=== PATIENT | female | born 1960 | race African-American/Black ===

== ENCOUNTER 2019-10-10 08:03 | Outpatient (CLI) | payer OTHER, SELFPAY ==
--- NOTE | ~2019-10-10 | XR_ITS ---
EXAMINATION: XR shoulder LT min 2V DATE: 10/10/2019 08:59 INDICATION: Left shoulder pain. TECHNIQUE: 4 views of left shoulder were obtained. COMPARISON: Left shoulder radiographs 07/16/2010 FINDINGS: Bone alignment is normal. No fracture. Glenohumeral joint is normal. There is mild acromioc lavicular joint osteoarthritis. IMPRESSION: 1. Mild left acromioclavicular joint osteoarthritis. Reviewed, dictated and finalized at location A. HATE TESTER
--- NOTE | ~2019-10-10 | XR_ITS ---
EXAMINATION: XR cervical spine 4-5V EXAM DATE: 10/10/2019 08:59 INDICATION: Left shoulder pain, neck pain. TECHNIQUE: Cervical spine frontal, lateral, lateral swimmers, and open-mouth odontoid projections. C omparison is made to prior examination from 08/18/2006. FINDINGS: There is no evidence of acute cervical fracture. The odontoid process is intact. Pre-dens space is normal. Prevertebral soft tissue is normal. There are no soft tissue abnormalities identi fied. The vertebral bodies are aligned. There is moderate disc disease C5-6 and C6-7, developed c ompared to 2006. Overall mild to moderate cervical arthropathy. IMPRESSION: 1. Mild to moderate cervical spondylosis. Reviewed, dictated and finalized at location B. ETT ROOM WORKER
== END 2019-10-10 08:04 | disposition home or self-care (01) ==
DX: M79.10 Myalgia, unspecified site (principal); M47.812 Spondylosis without myelopathy or radiculopathy, cervical region; M19.012 Primary osteoarthritis, left shoulder
CPT/HCPCS: 72050; 73030

== ENCOUNTER 2019-10-12 15:32 | Emergency (ER) | payer OTHER, SELFPAY ==
[2019-10-12 15:46] VITALS: BP 174/79; PULSE 69; RESP 18; TEMP 38.9; O2SAT 100
--- NOTE | 2019-10-12 16:40 | ED.GENADULT ---
HPI - General Adult General Chief complaint: Upper Respiratory Infection Stated complaint: Headache Time Seen by Provider: 10/12/19 16:40 Source: patient Mode of arrival: ambulatory Limitations: no limitations History of Present Illness HPI narrative: 59-year-old female patient presents to the [facility] with complaints of headache, body aches, chills, fevers, runny nose, stuffy nose and just overall feeling very weak and lethargy. Patient states she did not get a flu shot this year. Patient states her symptoms came on very abruptly today. Patient states that she did see her primary doctor yesterday for some neck issues which she was prescribed some medication for her. Patient states she has been taking the prescribed medication by her doctor which does include ibuprofen. Related Data Home Medications Medication Instructions Recorded Confirmed cyclobenzaprine 5 mg BID 10/12/19 10/12/19 ibuprofen 800 mg BID PRN 10/12/19 10/12/19 pregabalin 75 mg BID 10/12/19 10/12/19 Allergies Allergy/AdvReac Type Severity Reaction Status Date / Time No Known Allergies Allergy Verified 10/12/19 15:33 Review of Systems Review of Systems: Narrative: CONSTITUTIONAL: Positive fever, body aches, chills, and sweats. EYES: Denies visual changes, redness, or discharge. ENT: Positive rhinorrhea, congestion, denies sore throat, or otalgia. CARDIOVASCULAR: Denies chest pain, palpitations, or edema. RESPIRATORY: Positive cough denies dyspnea. GASTROINTESTINAL: Denies abdominal pain, nausea, vomiting, or diarrhea. GENITOURINARY: Denies dysuria or hematuria. SKIN: Denies rash or itching. MUSCULOSKELETAL: Denies back pain, joint pain, or myalgia. NEUROLOGIC: Denies headache, numbness, or weakness. PSYCHIATRIC: Denies anxiety or depression. PMFSH Social History Social History Gender identity (if verbalized by the patient): Female Comments At the time of my signature I agree with nursing past medical history, surgical, social, and family history. There is no relevant family history pertinent to the presenting complaint. Exam Narrative: Exam Narrative: GENERAL: ill-appearing, well-nourished, and in no acute distress. Patient is covered in blanket, wearing heavy jacket and a knit hat on arrival into the exam room HEAD: Normocephalic, atraumatic. EYES: PERRLA and EOMI. ENT: Nares with erythema and edema noted bilaterally, no rhinorrhea or epistaxis. Mucous membranes moist. Posterior pharynx with no erythema, tonsillar margin, exudates or lesions present. Bilateral TMs are clear no erythema or foreign bodies in the canal. NECK: Supple. No lymphadenopathy CHEST: Clear to auscultation. No respiratory distress. HEART: Regular rate and rhythm. No murmur heard. Normal peripheral pulses. ABDOMEN: Soft, nontender, nondistended, normal active bowel sounds. EXTREMITIES: Normal range of motion. No edema. SKIN: Warm, dry, no rash. NEURO: No focal deficits. Alert and oriented x3. Course Vital Signs Vital signs: Vital Signs Temperature 38.9 C H 10/12/19 15:46 Pulse Rate 69 10/12/19 15:46 Respiratory Rate 18 10/12/19 15:46 Blood Pressure 174/79 H 10/12/19 15:46 Pulse Oximetry 100 10/12/19 15:46 Temperature 38.9 C H 10/12/19 15:46 Pulse Rate 69 10/12/19 15:46 Respiratory Rate 18 10/12/19 15:46 Blood Pressure 174/79 H 10/12/19 15:46 Pulse Oximetry 100 10/12/19 15:46 Vital signs reviewed. The patient has been informed that they may have pre-hypertension or Hypertension based on a BP reading in the department. I recommend that the patient call the primary care provider listed on their discharge instructions or a physician of their choice this week to arrange follow up for further evaluation of possible pre-hypertension or Hypertension Medical Decision Making Differential Diagnosis Differential Diagnosis: Differential diagnosis: Allergic rhinitis, chronic sinusitis
== END 2019-10-12 16:51 | disposition home or self-care (01) ==
PROVIDERS: Emergency Provider Nurse Practitioner Family; PCP Family Medicine
DX: J06.9 Acute upper respiratory infection, unspecified (principal); R05 Cough; R50.9 Fever, unspecified; Z85.3 Personal history of malignant neoplasm of breast
CPT/HCPCS: 87804; 99213; G0463

== ENCOUNTER 2020-07-18 15:47 | Outpatient (CLI) | payer OTHER, SELFPAY ==
[2020-07-18 16:08] LABS: Hematocrit 34.8 % (37.0-47.0); Hemoglobin 11.2 g/dL (12.0-15.0); Mean Corpuscular HGB Conc 32.2 g/dl (32-36); Mean Corpuscular Hemoglobin 27.3 pg (26-34); Mean Corpuscular Volume 84.9 fl (80-100); Mean Platelet Volume 9.8 fl (7.4-10.4); Platelet Count Result 297 k/mm3 (150-375); Red Cell Distribution Width 14.6 % (11.5-14.5); White Blood Count 5.2 K/mm3 (4.5-10.0)
[2020-07-18 16:25] LABS: Alanine Aminotransferase 10 U/L (4-35); Albumin Level 3.9 g/dL (3.5-5.1); Alkaline Phosphatase 69 U/L (38-126); Anion Gap 7 mmol/L (8-16); Aspartate Amino Transferase 22 U/L (14-36); Bilirubin,Total 0.4 mg/dL (0.2-1.3); Blood Urea Nitrogen 11 mg/dL (7-17); Calcium 8.9 mg/dL (8.4-10.2); Carbon Dioxide 28 mmol/L (22-30); Chloride 106 mmol/L (98-107); Estimated Glomerular Filt Rate > 60; Glucose 119 mg/dL (65-105); Potassium 3.6 mmol/L (3.4-5.0); Sodium 141 mmol/L (137-145)
[2020-07-18 16:55] LABS: Thyroid Stimulating Hormone 0.959 uIU/mL (0.465-4.680)
[2020-07-18 16:59] LABS: Hemoglobin A1C 5.5 % (<5.7)
== END 2020-07-18 15:48 | disposition home or self-care (01) ==
LOC: ANHLAB 15:49
PROVIDERS: PCP Family Medicine; Visit Provider Psychiatry & Neurology Neurology
DX: G51.0 Bell's palsy (principal)
CPT/HCPCS: 36415; 80053; 83036; 84439; 84443; 85027

== ENCOUNTER 2020-08-01 08:06 | Outpatient (CLI) | payer OTHER, SELFPAY ==
--- NOTE | ~2020-08-01 | MR_ITS ---
EXAMINATION: MR brain/brain stem wo con DATE: 08/01/2020 10:11 INDICATION: Garcia's palsy. TECHNIQUE: Magnetic resonance imaging (MRI) of the brain and brainstem was performed without intraven ous contrast. Sequences included sagittal and axial T1-weighted FSE, axial diffusion-weighted FS EPI, axial T2*-weighted GRE, axial T2-weighted FLAIR Propeller, and axial T2-weighted Propeller. Apparent diffusion coefficient (ADC) maps were created. COMPARISON: None. FINDINGS: There are scattered areas of nonspecific increased T2-weighted signal intensity in the cere bral white matter, which is within normal limits for the patient's age. There is no intracranial hemo rrhage, acute infarction, or abnormal intracranial mass lesion. The ventricles are normal in size. Th e orbits are normal. The paranasal sinuses are clear. There is a trace right mastoid effusion. IMPRESSION: 1. Normal aging brain. Reviewed, dictated and finalized at location A. KBOOK FORWARDER IMPRESSION: 1. Normal aging brain.
--- NOTE | ~2020-08-01 | MR_ITS ---
EXAMINATION: MR cervical spine wo con DATE: 08/01/2020 10:30 INDICATION: Left neck pain. TECHNIQUE: Magnetic resonance imaging (MRI) of the cervical spine was performed without intravenous c ontrast. Sequences included sagittal T2-weighted FSE, sagittal STIR FSE, sagittal T1-weighted FSE, ax ial MERGE, and axial T2-weighted FSE. COMPARISON: Cervical spine radiographs 10/10/2019, thoracic spine MRI 09/05/2018 FINDINGS: There is kyphosis of cervical spine. There is 2 mm retrolisthesis of C5 on C6. Vertebral maria isabel dy heights are normal. There is mildly decreased disc height at C4-C5, moderately decreased disc heig ht at C5-C6, and mildly decreased disc height at C6-C7. The spinal cord signal intensity is normal. T he following disc levels are specifically discussed: C2-C3: The disc does not extend beyond the endplate margin. There is no uncovertebral joint osteoarth ritis. There is mild bilateral facet joint osteoarthritis. There is no neural foraminal stenosis. The re is no central canal stenosis. C3-C4: There is a central protrusion. There is mild bilateral uncovertebral joint osteoarthritis. The re is moderate bilateral facet joint osteoarthritis. There is no neural foraminal stenosis. There is mild central canal stenosis. C4-C5: The disc does not extend beyond the endplate margin. There is no uncovertebral joint osteoarth ritis. There is mild left facet joint osteoarthritis. There is no neural foraminal stenosis. There is no central canal stenosis. C5-C6: The disc is bulging. There is severe right and moderate left uncovertebral joint osteoarthriti s. There is no facet joint osteoarthritis. There is mild bilateral neural foraminal stenosis. There i s mild central canal stenosis with ventral indentation of the spinal cord. C6-C7: The disc is bulging. There is moderate bilateral uncovertebral joint osteoarthritis. There is no facet joint osteoarthritis. There is mild bilateral neural foraminal stenosis. There is mild centr al canal stenosis. C7-T1: The disc does not extend beyond the endplate margin. There is no uncovertebral joint osteoarth ritis. There is mild right and moderate left facet joint osteoarthritis. There is mild left neural fo raminal stenosis. There is no central canal stenosis. IMPRESSION: 1. Moderate cervical spondylosis. Reviewed, dictated and finalized at location A. AL HYGIENIST
== END 2020-08-01 08:07 ==
PROVIDERS: PCP Family Medicine; Visit Provider Psychiatry & Neurology Neurology
DX: G51.0 Bell's palsy (principal); M54.2 Cervicalgia; M47.892 Other spondylosis, cervical region
CPT/HCPCS: 70551; 72141

== ENCOUNTER 2021-03-22 20:14 | Emergency (ER) | payer OTHER, SELFPAY ==
[2021-03-22 20:18] VITALS: BP 143/60; PULSE 70; RESP 18; TEMP 36.3; O2SAT 99
--- NOTE | 2021-03-22 23:10 | ED.WOUNDLAC ---
HPI - Wound/Laceration General Chief Complaint: Wound/Laceration Stated Complaint: laceration to right arm Time Seen by Provider: 03/22/21 22:41 Source: patient Mode of arrival: ambulatory Limitations: no limitations History of Present Illness HPI narrative: 61-year-old female Patient states that she was standing with her feet in the bathroom sink to wash them off and she slipped and fell in her right arm landed on and broke a glass She has several fairly superficial lacerations to the inner part of the upper right arm No other injuries Related Data Home Medications Medication Instructions Recorded Confirmed cyclobenzaprine 5 mg BID 10/12/19 10/12/19 ibuprofen 800 mg BID PRN 10/12/19 10/12/19 pregabalin 75 mg BID 10/12/19 10/12/19 Allergies Allergy/AdvReac Type Severity Reaction Status Date / Time No Known Allergies Allergy Verified 10/12/19 15:33 [facility] Social History Social History Gender identity (if verbalized by the patient): Female Course Vital Signs Vital signs: Vital Signs Temperature 36.3 C L 03/22/21 20:18 Pulse Rate 70 03/22/21 20:18 Respiratory Rate 18 03/22/21 20:18 Blood Pressure 143/60 H 03/22/21 20:18 Pulse Oximetry 99 03/22/21 20:18 Temperature 36.3 C L 03/22/21 20:18 Pulse Rate 70 03/22/21 20:18 Respiratory Rate 18 03/22/21 20:18 Blood Pressure 143/60 H 03/22/21 20:18 Pulse Oximetry 99 03/22/21 20:18 Procedures Laceration Laceration 1: Date: 03/22/21 Time: 23:00 Site: upper extremity Side (If applicable): right Size (cm): 3 Description: linear Depth: simple, single layer Local Anesthetic: lidocaine 1% and with epi Amount of anesthesia used (mL): 3 Pre-repair: wound explored (No foreign bodies) and irrigated ====== Skin Level ====== Skin layer closed with: nylon Size (cm): 4-0 Number of sutures: 4 Technique: simple, interrupted ====== Subcutaneous Layer ====== ====== Muscle Layer ====== ====== Tendon Layer ====== Laceration 2: Date: 03/22/21 Time: 23:00 Site: upper extremity Side (If applicable): right Size (cm): 2 Description: stellate and flap Depth: simple, single layer Local Anesthetic: lidocaine 1% and with epi Amount of anesthesia used (mL): 2 Pre-repair: wound explored (No foreign body) and irrigated ====== Skin Level ====== Skin layer closed with: nylon Size (cm): 4-0 Number of sutures: 4 Technique: simple, interrupted and other (3 corner suture) ====== Subcutaneous Layer ====== ====== Muscle Layer ====== ====== Tendon Layer ====== Discharge Plan Discharge Clinical Impression: Laceration of arm, right, multiple sites Patient Disposition: Home, Self-Care Condition: Improved Instructions: Care For Your Stitches (ED), Laceration (ED) Additional Instructions: Sutures can be removed by your primary care doctor in about 10 days Prescriptions: No Action ibuprofen 800 mg tablet 800 mg BID PRN (Reason: Pain) RF: 0 cyclobenzaprine 5 mg tablet 5 mg BID RF: 0 pregabalin 75 mg capsule 75 mg BID RF: 0 oseltamivir [Tamiflu] 75 mg capsule 75 mg PO Q12H 5 Days Qty: 10 RF: 0 Follow-up/Referrals: Neetu,Jerzy Driver MD [Primary Care Provider] - (A week from Tuesday suture removal)
[2021-03-23] MEDS: TETANUS,DIPHTHERIA,AC PERTUSSIS ADULT (0.5 ML) BOOSTRIX IM (00:07)
[2021-03-23 00:23] VITALS: BP 132/90; PULSE 68; RESP 19; O2SAT 100
== END 2021-03-23 00:24 | disposition home or self-care (01) ==
PROVIDERS: Emergency Provider Emergency Medicine; PCP Family Medicine
DX: S41.111A Laceration without foreign body of right upper arm, initial encounter (principal); W01.0XXA Fall on same level from slipping, tripping and stumbling without subsequent striking against object, initial encounter; Z23 Encounter for immunization
CPT/HCPCS: 12002; 90471; 90715; 99282

== ENCOUNTER 2021-04-01 08:39 | Emergency (ER) | payer OTHER, SELFPAY ==
[2021-04-01 08:50] VITALS: BP 143/103; PULSE 65; RESP 16; TEMP 36.6; O2SAT 98
--- NOTE | 2021-04-01 08:52 | ED.UPPEXIN ---
HPI - Extremity Injury (Upper) General Chief Complaint: Skin/Abscess/Foreign Body Stated Complaint: stitches removal Source: patient and RN notes reviewed Limitations: no limitations History of Present Illness HPI narrative: The patient, on routine meds, presents for suture removal. Patient states about 10 days ago she lacerated her right medial bicep when she slipped and fell, landing up on glass. It was sutured in the ER; she requests removal of the 8 stitches, by physician. She has no complaints; except she is notices intermittent rash on her neck at the hairline. Vitals are remarkable for elevated blood pressure; she has a prior history of hypertension-she didn't take her meds this morning. Related Data Home Medications Medication Instructions Recorded Confirmed amlodipine 5 mg PO DAILY 04/01/21 04/01/21 gabapentin 600 mg PO DAILY 04/01/21 04/01/21 Allergies Allergy/AdvReac Type Severity Reaction Status Date / Time No Known Allergies Allergy Verified 04/01/21 08:54 Review of Systems Review of Systems: General/Constitutional: No weight loss,fever Eyes: N0: Redness,discharge Ears/Nose/Throat: No: Epistaxis,ear discharge Respiratory: Denies: Hemoptysis Gastrointestinal: No Vomiting, Bleeding-rectal Skin: No Lumps, REPORTS eruption Neurologic: No Focal Weakness,Sz Hematologic: Denies: Petechiae/Purpura Psychiatric: No: Suicida ideationl All Other Systems: Reviewed and Negative PMFSH Social History Social History Gender identity (if verbalized by the patient): Female Comments At time of signature, agree with nursing past medical, surgical, social and family history. There is no relevant family history pertinent to the presenting complaint Exam Narrative: General Appearance: Well nourished/overweight , Normocephalic, Conjunctiva clear Musculoskeletal: Moves all extremities, Non tender; well-healing puncture/lacerations of right arm Ear: External ear normal Nose: Normal nose, Nare clear Mouth/Throat: Normal appearing Neck Exam: Supple Respiratory: Airway patent, No respiratory distress Skin: Warm, Dry; micropapular eruption on the neck hairline Neurological: A&O x3 Psychiatric: Normal mood, Normal affect Course Vital Signs Vital signs: Vital Signs Temperature 97.9 F 04/01/21 08:50 Pulse Rate 65 04/01/21 08:50 Respiratory Rate 16 04/01/21 08:50 Blood Pressure 143/103 H 04/01/21 08:50 Pulse Oximetry 98 04/01/21 08:50 Temperature 97.9 F 04/01/21 08:50 Pulse Rate 65 04/01/21 08:50 Respiratory Rate 16 04/01/21 08:50 Blood Pressure 143/103 H 04/01/21 08:50 Pulse Oximetry 98 04/01/21 08:50 Discharge Plan Discharge Clinical Impression: Visit for suture removal, Pruritic condition Patient Disposition: Home, Self-Care Condition: Stable Instructions: Dermatitis (ED) Prescriptions: New clotrimazole [Antifungal (clotrimazole)] 1 % cream 1 applic topical BID Qty: 15 RF: 0 No Action amlodipine 5 mg tablet 5 mg PO DAILY RF: 0 gabapentin 600 mg tablet 600 mg PO DAILY RF: 0 Follow-up/Referrals: Neetu,Jerzy Driver MD [Primary Care Provider] -
--- NOTE | 2021-04-01 09:28 | PC.NURSE ---
0900 Dr. Ram removed sutures.
== END 2021-04-01 09:23 | disposition home or self-care (01) ==
PROVIDERS: Emergency Provider Emergency Medicine; PCP Family Medicine
DX: S41.111D Laceration without foreign body of right upper arm, subsequent encounter (principal); W25.XXXD Contact with sharp glass, subsequent encounter; L29.9 Pruritus, unspecified; I10 Essential (primary) hypertension; Z85.3 Personal history of malignant neoplasm of breast
CPT/HCPCS: 99213; G0463

== ENCOUNTER 2021-09-11 17:20 | Emergency (ER) | payer OTHER, SELFPAY ==
[2021-09-11 17:30] VITALS: BP 154/80; PULSE 78; RESP 16; TEMP 37.1; O2SAT 99
[2021-09-11 17:32] VITALS: BP 154/80; PULSE 78; RESP 16; TEMP 37.1; O2SAT 99
--- NOTE | 2021-09-11 17:36 | ED.SKABFB ---
HPI - Skin/Abscess/Foreign Bdy General Chief complaint: Skin/Abscess/Foreign Body Stated complaint: Infection in finger Time Seen by Provider: 09/11/21 17:36 Source: patient Mode of arrival: ambulatory Limitations: no limitations History of Present Illness HPI narrative: Tray Rivera is a 61 yo female with a PMH of HTN who comes to [facility] with an old about a week old but has not really healed well is not draining it does not look inflamed does not look really infected but patient is concerned that is getting infected and has a mild amount of tenderness with movement Related Data Home Medications Medication Instructions Recorded Confirmed amlodipine 5 mg PO DAILY 04/01/21 09/11/21 Allergies Allergy/AdvReac Type Severity Reaction Status Date / Time No Known Allergies Allergy Verified 09/11/21 17:30 Review of Systems Review of Systems: CONSTITUTIONAL: Denies fever, chills, sweats. EYES: Denies visual changes, redness, discharge. ENT: Denies rhinorrhea, congestion, sore throat, otalgia. CARDIOVASCULAR: Denies chest pain, palpitations, edema. RESPIRATORY: Denies dyspnea, wheezing, cough GASTROINTESTINAL: Denies abdominal pain, nausea, vomiting, diarrhea. GENITOURINARY: Denies dysuria, hematuria, abnormal discharge SKIN: Denies rash or itching. Has cut on the distal portion of the right fourth finger there is a week old that is not well approximated NEUROLOGIC: Denies numbness, or focal weakness. PSYCHIATRIC: Denies anxiety or depression. PMFSH Past Medical History Medical History No acute medical problems Social History Social History (Updated 09/11/21 @ 17:46 by Justa Katz CNP) Smoking status: Never smoker Alcohol intake: current Gender identity (if verbalized by the patient): Female Comments At time of signature, I agree with nursing past medical, surgical, social and family history. There is no relevant family history pertinent to the presenting complaint. Exam Narrative: GENERAL: This is a well-nourished, well-developed patient, in mild distress. HEAD: normocephalic, atraumatic. EYES: Sclera clear/white. Vision is grossly intact. EARS: External ears normal, Hearing grossly intact. NOSE: External nose normal without nasal discharge, nares without redness, no rhinorrhea. THROAT: Mucous membranes moist, NECK: Neck supple, non-tender CARDIOVASCULAR: Regular rate and rhythm without murmurs, gallops, or rubs. RESPIRATORY: Clear to auscultation. Breath sounds equal bilaterally. No wheezes, rales, or rhonchi. GASTROINTESTINAL: Abdomen soft, non-tender, SKIN: warm, intact with well approximated healing incision on the dorsum side of the fourth finger distal digit NEURO: awake, alert, and oriented to person, place and time. There were no obvious focal neurologic abnormalities. Steady gait EXTREMITIES: Normal range of motion. BACK: Nontender without deformity Course Course Emergency Course: Patient comes with incision that is not well healed from a week ago Told patient to keep with dressed with a Band-Aid and started on short course of Keflex Level of Care: Express Care Visit Vital Signs Vital signs: Vital Signs Temperature 98.7 F 09/11/21 17:30 Pulse Rate 78 09/11/21 17:30 Respiratory Rate 16 09/11/21 17:30 Blood Pressure 154/80 H 09/11/21 17:30 Pulse Oximetry 99 09/11/21 17:30 Temperature 98.7 F 09/11/21 17:32 Pulse Rate 78 09/11/21 17:32 Respiratory Rate 16 09/11/21 17:32 Blood Pressure 154/80 H 09/11/21 17:32 Pulse Oximetry 99 09/11/21 17:32 MDM - Skin/Abscess/Foreign Bdy Differential Diagnosis Differential diagnosis: Likely abscess of skin or subcutaneous tissue, cellulitis, contact dermatitis and other Discharge Plan Discharge Clinical Impression: Cellulitis Qualifiers: Site of cellulitis: extremity Site of cellulitis of extremity: finger Laterality: right Qualified Code(s):
== END 2021-09-11 18:20 | disposition home or self-care (01) ==
PROVIDERS: Emergency Provider Nurse Practitioner; PCP Family Medicine
DX: L03.011 Cellulitis of right finger (principal); I10 Essential (primary) hypertension; Z85.3 Personal history of malignant neoplasm of breast
CPT/HCPCS: 99213; G0463

== ENCOUNTER 2021-11-05 11:07 | Emergency (ER) | payer OTHER, SELFPAY ==
--- NOTE | ~2021-11-05 | XR_ITS ---
EXAMINATION: XR chest 2V DATE: 11/05/2021 12:18 INDICATION: Left-sided chest pain TECHNIQUE: PA and lateral views of the chest are obtained. COMPARISON: 01/09/2009 FINDINGS: The lungs are free of acute opacities. There is no pleural effusion or pneumothorax. The ca rdiomediastinal silhouette is normal. There is mild thoracic spondylosis. IMPRESSION: 1. No acute cardiopulmonary abnormality. Reviewed, dictated and finalized at location B.
--- NOTE | 2021-11-05 11:10 | ECG_ITS ---
Measurements Intervals [place] Rate: 59 P: 60 IA: 179 QRS: 4 QRSD: 84 T: 21 QT: 396 QTc: 395 Interpretive Statements SINUS BRADYCARDIA MODERATE VOLTAGE CRITERIA FOR LVH, CONSIDER NORMAL VARIANT [MEETS CRITERIA IN ONE OF: R(aVL), S(V1), R(V5), R(V5/V6)+S(V1)] LATERAL ST ELEVATION, CONSIDER EARLY REPOLARIZATION VERSUS INJURY PATTERN ABNORMAL ECG NO PREVIOUS ECG AVAILABLE FOR COMPARISON Electronically Signed On 11-05-2021 16:01:04 CDT by Alfonso Szymanski M.D.
[2021-11-05 11:12] VITALS: BP 140/53; PULSE 65; RESP 18; TEMP 36.9; O2SAT 99
[2021-11-05 11:29] LABS: Basophils Percent Auto 0.2 % (0.2-1.2); Eosinophils Absolute Auto 0.1 K/mm3 (0-0.3); Eosinophils Percent Auto 0.8 % (0-4.4); Hematocrit 37.1 % (37.0-47.0); Hemoglobin 11.5 g/dL (12.0-15.0); Immature Granulocyte Absolute 0.02 K/mm3 (0.00-0.031); Immature Granulocyte Percent A 0.3 % (0-0.5); Lymphocytes Absolute Auto 1.23 K/mm3 (0.9-3.2); Lymphocytes Percent Auto 20.4 % (18.3-44.2); Mean Corpuscular Hemoglobin 26.3 pg (26-34); Mean Corpuscular Volume 84.9 fl (80-100); Mean Platelet Volume 9.7 fl (7.4-10.4); Monocytes Absolute Auto 0.3 K/mm3 (0.1-0.6); Monocytes Percent Auto 4.5 % (2.6-8.5); Neutrophils Absolute Auto 4.5 K/mm3 (1.3-6.7); Neutrophils Percent Auto 73.8 % (45.5-73.1); Platelet Count Result 322 k/mm3 (150-375); Red Blood Count 4.37 M/mm3 (4.2-5.4); Red Cell Distribution Width 15.5 % (11.5-14.5)
[2021-11-05 11:39] LABS: Prothrombin Time 13.1 Seconds (11.1-14.7)
[2021-11-05 11:40] LABS: Alanine Aminotransferase 13 U/L (4-35); Albumin Level 4.4 g/dL (3.5-5.1); Alkaline Phosphatase 79 U/L (38-126); Anion Gap 5 mmol/L (8-16); Aspartate Amino Transferase 29 U/L (14-36); Bilirubin,Total 0.4 mg/dL (0.2-1.3); Blood Urea Nitrogen 15 mg/dL (7-17); Calcium 8.9 mg/dL (8.4-10.2); Carbon Dioxide 27 mmol/L (22-30); Chloride 106 mmol/L (98-107); Estimated CRCL calculation 71 ml/min; Estimated Glomerular Filt Rate > 60; Glucose 109 mg/dL (65-110); Lipase 36 U/L (23-300); Partial Thromboplastin Time 32.6 SECONDS (22.3-36.8); Potassium 4.1 mmol/L (3.4-5.0); Sodium 138 mmol/L (137-145)
[2021-11-05 11:51] LABS: Troponin I < 0.012 ng/mL (0.000-0.034)
[2021-11-05] MEDS: ASPIRIN 81 MG CHEWABLE TABLET 324 MG PO (11:59)
--- NOTE | 2021-11-05 13:23 | ED.CHESTPAIN ---
HPI - Chest Pain General Chief Complaint: Chest Pain Stated Complaint: chest pains Time Seen by Provider: 11/05/21 11:55 Source: patient Mode of arrival: ambulatory Limitations: no limitations History of Present Illness HPI narrative: 61-year-old with a history of hypertension here with complaints of left-sided chest pain on and off for past 1 month. Patient states every time she moves in certain direction she gets pain and also along with deep breathing. She denies any fever or chills no history of cough or shortness of breath. She denies any previous history of coronary artery disease. MD complaint: chest pain Pertinent past history: other (Hypertension) Onset (ago): week(s) Timing of current episode: constant Prior episodes: No Onset: other (With movement and deep breathing) Pain location: left chest Pain radiation: left shoulder Severity: moderate Quality: aching Relieving factors: nothing Exacerbating factors: inspiration and movement Treatment prior to arrival: none Risk Factors Coronary artery disease risk factors: hypertension Thoracic aortic dissection risk factors: none Related Data On Oral Contraceptives: No Home Medications Medication Instructions Recorded Confirmed amlodipine 5 mg PO DAILY 04/01/21 09/11/21 Allergies Allergy/AdvReac Type Severity Reaction Status Date / Time No Known Allergies Allergy Verified 09/11/21 17:30 Review of Systems Review of Systems: All systems reviewed & are unremarkable except as noted in HPI and below Constitutional: Constitutional: Reports no additional constitutional complaints Eyes: Eyes: Reports no additional eye complaints ENT: Reports system reviewed and no additional complaints, except as documented Cardiovascular: Cardiovascular: Reports as per HPI Respiratory: Respiratory: Reports no additional respiratory complaints Gastrointestinal: Gastrointestinal: Reports no additional gastrointestinal complaints Musculoskeletal: Musculoskeletal: Reports no additional musculoskeletal complaints Integumentary/Breasts: Skin/Breast: Reports system reviewed and no additional complaints, except as docu PMFSH Past Medical History Medical History No acute medical problems Social History Social History Smoking status: Never smoker Alcohol intake: current Gender identity (if verbalized by the patient): Female Exam Narrative: GENERAL: Well-appearing, well-nourished, and in no acute distress. HEAD: Normocephalic, atraumatic. EYES: PERRLA and EOMI.. NECK: Supple. CHEST: Clear to auscultation. No respiratory distress. HEART: Regular rate and rhythm. No murmur heard. Normal peripheral pulses. ABDOMEN: Soft, nontender, nondistended, normal active bowel sounds. EXTREMITIES: Normal range of motion. No edema. SKIN: Warm, dry, no rash. NEURO: No focal deficits. Alert and oriented x3. PSYCH: Normal mood and affect. Course Course Emergency Course: Patient comfortably lying on bed. No active chest pain at this time. Informed her about her lab work, chest x-ray and EKG findings. Advised her to take pain medication as prescribed. Vital Signs Vital signs: Vital Signs Temperature 36.9 C 11/05/21 11:12 Pulse Rate 65 11/05/21 11:12 Respiratory Rate 18 11/05/21 11:12 Blood Pressure 140/53 L 11/05/21 11:12 Pulse Oximetry 99 11/05/21 11:12 Temperature 36.9 C 11/05/21 11:12 Pulse Rate 65 11/05/21 11:12 Respiratory Rate 18 11/05/21 11:12 Blood Pressure 140/53 L 11/05/21 11:12 Pulse Oximetry 99 11/05/21 11:12 MDM - Chest Pain MDM Narrative Medical decision making narrative: 61-year-old with a history of hypertension left-sided chest pain on and off for last 1 month more with deep inspiration and movement appears to be more musculoskeletal given the age and risk factors we will do complete cardiac work-up. Differential Eve
== END 2021-11-05 13:44 | disposition home or self-care (01) ==
PROVIDERS: Emergency Provider Family Medicine; PCP Family Medicine
DX: R07.89 Other chest pain (principal); R00.1 Bradycardia, unspecified; R94.31 Abnormal electrocardiogram [ECG] [EKG]
CPT/HCPCS: 36415; 71046; 80053; 83690; 84484; 85025; 85610; 85730; 93005; 99284; A9270

== ENCOUNTER 2023-01-28 12:46 | Emergency (ER) | payer MEDICARE, MEDICAID, SELFPAY ==
[2023-01-28 12:55] VITALS: BP 142/56; PULSE 65; RESP 16; TEMP 37.3; O2SAT 100
[2023-01-28 13:04] VITALS: BP 142/56; PULSE 65; RESP 16; TEMP 37.3; O2SAT 100
--- NOTE | 2023-01-28 13:19 | ED.SKABFB ---
HPI - Skin/Abscess/Foreign Bdy General Chief complaint: Skin/Abscess/Foreign Body Stated complaint: Rash Time Seen by Provider: 01/28/23 13:15 Source: patient and RN notes reviewed Mode of arrival: ambulatory Limitations: no limitations History of Present Illness HPI narrative: Patient presents today complaining of a pruritic rash to the right lower jaw line that started a week ago and has worsened to include swelling over the past 3 days. Denies pain. She has been using topical Benadryl cream and peroxide without relief. Denies any new plant or animal exposures, new household products, new foods. Related Data Home Medications Medication Instructions Recorded Confirmed amlodipine 5 mg tablet 5 mg PO DAILY 01/28/23 01/28/23 gabapentin 600 mg tablet 600 mg PO DAILY 01/28/23 01/28/23 tamoxifen 10 mg tablet 10 mg PO BID 01/28/23 01/28/23 Allergies Allergy/AdvReac Type Severity Reaction Status Date / Time amoxicillin Allergy Mild Itching Verified 01/28/23 13:13 Review of Systems Review of Systems: CONSTITUTIONAL: Denies body aches, fever, chills, or sweats. EYES: Denies visual changes, redness, or discharge. ENT: Denies rhinorrhea, congestion, sore throat, or otalgia. CARDIOVASCULAR: Denies chest pain, palpitations, or edema. RESPIRATORY: Denies cough or dyspnea. GASTROINTESTINAL: Denies abdominal pain, nausea, vomiting, or diarrhea. GENITOURINARY: Denies dysuria or hematuria. SKIN: Denies wounds.+ rash to right jaw MUSCULOSKELETAL: Denies back pain, joint pain, or myalgia. NEUROLOGIC: Denies headache, numbness, tingling, or weakness. PSYCH: Denies depression or anxiety. REPLACED BY [facility] Past Medical History Medical History No acute medical problems Social History Social History Smoking status: Never smoker Alcohol intake: current Gender identity (if verbalized by the patient): Female Comments At time of signature, I have reviewed and agree with nursing past medical, surgical, social and family history unless otherwise noted. Please see nursing chart for further information. There is no relevant family history pertinent to the presenting complaint Exam Narrative: GENERAL: Well-appearing, well-nourished, and in no acute distress. HEAD: Normocephalic, atraumatic. EYES: EOMI. No redness or drainage. Conjunctivae normal. ENT: Mucous membranes pink and moist. NECK: Normal AROM. CHEST: No respiratory distress. EXTREMITIES: Normal range of motion. No edema. SKIN: Warm, dry. Capillary refill normal. Normal skin turgor. Right lower jaw line it has some mild erythema and scant induration that is mildly tender to palpation. She also has and area of tiny, scabs, likely from scratching, in the center of the erythema. Patient has had tooth extractions in this area does not have any dental problems in the adjoining area. NEURO: No focal deficits. Alert and oriented x3. Gait steady. PSYCH: Normal affect. No signs of depression or anxiety. Course Course Level of Care: Express Care Visit Vital Signs Vital signs: Vital Signs Temperature 99.1 F 01/28/23 12:55 Pulse Rate 65 01/28/23 12:55 Respiratory Rate 16 01/28/23 12:55 Blood Pressure 142/56 H 01/28/23 12:55 Pulse Oximetry 100 01/28/23 12:55 Oxygen Delivery Room Air 01/28/23 12:55 Temperature 99.1 F 01/28/23 13:04 Pulse Rate 65 01/28/23 13:04 Respiratory Rate 16 01/28/23 13:04 Blood Pressure 142/56 H 01/28/23 13:04 Pulse Oximetry 100 01/28/23 13:04 Oxygen Delivery Room Air 01/28/23 13:04 Reviewed. Pt has been instructed to follow up with her PCP regarding her elevated blood pressure today. MDM - Skin/Abscess/Foreign Bdy MDM Narrative Medical decision making narrative: Symptoms consistent with cellulitis. Will treat with Keflex. Instructed patient to stop using peroxide. Instructed
== END 2023-01-28 13:28 | disposition home or self-care (01) ==
PROVIDERS: Emergency Provider Nurse Practitioner; PCP Family Medicine
DX: L03.211 Cellulitis of face (principal)
CPT/HCPCS: 99213; G0463

== ENCOUNTER 2023-03-08 18:26 | Emergency (ER) | payer MEDICARE, MEDICAID, SELFPAY ==
--- NOTE | 2023-03-08 18:39 | PC.NURSE ---
183-first attempt to call back- no answer, child in waiting room said she is outside.
[2023-03-08 18:48] VITALS: BP 156/70; PULSE 74; RESP 16; TEMP 37.1; O2SAT 100
--- NOTE | 2023-03-08 18:57 | ED.SKABFB ---
HPI - Skin/Abscess/Foreign Bdy General Chief complaint: Extremity Injury, Upper Stated complaint: stung by wasp Time Seen by Provider: 03/08/23 19:03 Source: patient and RN notes reviewed Mode of arrival: ambulatory Limitations: no limitations History of Present Illness HPI narrative: 63-year-old female presents with concern for redness, swelling, warmth on her thigh were she was stung by a wasp 2 days ago. She reports it is tender to touch. She reports slight itching, she has been using [id number] cream without relief. She denies malaise, fever, chills, body aches. Denies drainage from the area MD complaint: insect bite/sting Related Data Home Medications Medication Instructions Recorded Confirmed amlodipine 5 mg tablet 5 mg PO DAILY 01/28/23 03/08/23 gabapentin 600 mg tablet 600 mg PO DAILY 01/28/23 03/08/23 tramadol 03/08/23 03/08/23 Allergies Allergy/AdvReac Type Severity Reaction Status Date / Time amoxicillin Allergy Mild Itching Verified 03/08/23 18:47 Review of Systems Review of Systems: CONSTITUTIONAL: Denies malaise, chills, sweats, or fever. EYES: Denies redness, or discharge. ENT: Denies rhinorrhea, congestion, swollen lips, swollen tongue CARDIOVASCULAR: Denies chest pain, palpitations, or edema. RESPIRATORY: Denies cough or dyspnea. GASTROINTESTINAL: Denies abdominal pain, nausea, vomiting SKIN: Reports redness, swelling, warmth, tenderness to the right thigh where she was stung by wasps MUSCULOSKELETAL: Denies joint pain or myalgia. NEUROLOGIC: Denies headache. All systems reviewed & are unremarkable except as noted in HPI and below PMFSH Past Medical History Medical History No acute medical problems Social History Social History Smoking status: Never smoker Alcohol intake: current Gender identity (if verbalized by the patient): Female Comments At time of signature, agree with nursing past medical, surgical, social and family history. There is no relevant family history pertinent to the presenting complaint Exam Narrative: GENERAL: Well-appearing, well-nourished, and in no acute distress. HEAD: Normocephalic, atraumatic. EYES: PERRLA, conjunctivae clear, and EOMI. ENT: Mucous membranes moist. Oropharynx without edema, erythema or lesions. NECK: Supple. No lymphadenopathy CHEST: Clear to auscultation. No respiratory distress. HEART: Regular rate and rhythm. SKIN: Warm, dry. Approximately 14 cm in diameter area of warmth, erythema, induration without fluctuation noted to the right thigh NEURO: Alert and oriented x3. PSYCH: Normal mood and affect Course Course Emergency Course: Patient is aware of diagnosis, understands and agrees to treatment plan. Anticipatory guidance given. Patient agrees to follow-up as directed and is aware of reasons to seek care at the emergency department. Portions of this record may have been created with voice recognition software Level of Care: Express Care Visit Vital Signs Vital signs: Vital Signs Temperature 98.7 F 03/08/23 18:48 Pulse Rate 74 03/08/23 18:48 Respiratory Rate 16 03/08/23 18:48 Blood Pressure 156/70 H 03/08/23 18:48 Pulse Oximetry 100 03/08/23 18:48 Oxygen Delivery Room Air 03/08/23 18:48 Temperature 98.7 F 03/08/23 18:48 Pulse Rate 74 03/08/23 18:48 Respiratory Rate 16 03/08/23 18:48 Blood Pressure 156/70 H 03/08/23 18:48 Pulse Oximetry 100 03/08/23 18:48 Oxygen Delivery Room Air 03/08/23 18:48 Reviewed. MDM - Skin/Abscess/Foreign Bdy MDM Narrative Medical decision making narrative: Does not appear at this time to be erythema multiforme, bullous, SJS, TEN; no evidence at this time to suggest RMSF, endocarditis or Lyme disease; patient looks well, nontoxic and is tolerating oral intake; no neurologic signs or symptoms; no headache, photophobi
== END 2023-03-08 19:10 | disposition home or self-care (01) ==
PROVIDERS: Emergency Provider Nurse Practitioner; PCP Family Medicine
DX: L08.9 Local infection of the skin and subcutaneous tissue, unspecified (principal); T63.461A Toxic effect of venom of wasps, accidental (unintentional), initial encounter; I10 Essential (primary) hypertension; Z85.3 Personal history of malignant neoplasm of breast; Z92.3 Personal history of irradiation
CPT/HCPCS: 99213; G0463

== ENCOUNTER 2024-05-18 12:14 | Outpatient (CLI) | payer MEDICARE, MEDICAID, SELFPAY ==
[2024-05-18 13:37] LABS: Hematocrit 38.4 % (37.0-47.0); Hemoglobin 11.8 g/dL (12.0-15.0); Mean Corpuscular HGB Conc 30.7 g/dl (32-36); Mean Corpuscular Hemoglobin 25.7 pg (26-34); Mean Corpuscular Volume 83.5 fl (80-100); Mean Platelet Volume 9.8 fl (7.4-10.4); Platelet Count Result 370 k/mm3 (150-375); Red Cell Distribution Width 15.4 % (11.5-14.5); White Blood Count 6.8 K/mm3 (4.5-10.0)
[2024-05-18 13:51] LABS: Alanine Aminotransferase 10 U/L (6-35); Albumin Level 4.6 g/dL (3.5-5.1); Alkaline Phosphatase 82 U/L (38-126); Anion Gap 6 mmol/L (4-12); Aspartate Amino Transferase 22 U/L (14-36); Bilirubin,Total 0.4 mg/dL (0.2-1.3); Blood Urea Nitrogen 19 mg/dL (7-17); Calcium 9.5 mg/dL (8.4-10.2); Carbon Dioxide 28 mmol/L (22-30); Chloride 104 mmol/L (98-107); Cholesterol 177 mg/dL (0-200); Estimated Glomerular Filt Rate > 60; Glucose 85 mg/dL (65-110); HDL Direct 65 mg/dL; Potassium 4.3 mmol/L (3.4-5.0); Sodium 138 mmol/L (137-145); Triglycerides 53 mg/dL (<150)
[2024-05-18 14:02] LABS: LDL Cholesterol Direct 76 mg/dL
[2024-05-18 14:58] LABS: Vitamin D 25 Hydroxy 20.6 ng/mL
[2024-05-18 16:49] LABS: Folic Acid 4.9 ng/mL (2.76->20)
== END 2024-05-18 12:15 | disposition home or self-care (01) ==
PROVIDERS: PCP Family Medicine; Visit Provider Family Medicine
DX: E66.01 Morbid (severe) obesity due to excess calories (principal); G62.9 Polyneuropathy, unspecified
CPT/HCPCS: 36415; 80053; 80061; 82306; 82607; 82746; 85027